=== PATIENT | female | born 1975 | race African-American/Black ===

== ENCOUNTER 2017-08-21 19:35 | Emergency (ER) | payer SELFPAY ==
[~2017-08-21] VITALS: Ht 162.6 cm; Wt 90.7 kg
--- NOTE | ~2017-08-21 | EKG ---
PATIENT: TOÑO APARICIO UNIT #: [id number] Ventricular Rate: 58 BPM Atrial Rate: 58 BPM P-R Interval: 154 ms QRS Duration: 84 ms Q-T Interval: 400 ms QTC Calculation(Bezet): 392 ms P [place]: 53 degrees Calculated R [place]: 17 degrees Calculated T [place]: 24 degrees Diagnosis Line: Sinus bradycardia Diagnosis Line: Nonspecific ST and T wave abnormality Diagnosis Line: Abnormal ECG Diagnosis Line: No previous ECGs available Diagnosis Line: Confirmed by JERRELL KLEIN MD ([id number]) on Diagnosis Line: 08/22/2017 9:46:00 AM INTERPRETING MD: LATOYA ZULETA
--- NOTE | ~2017-08-21 | CT71 ---
[facility] A Service [facility] RADIOLOGY TEXT RESULTS PATIENT: TOÑO APARICIO LOCATION: [facility] : 71 UNIT #: [id number] AGE: [address]: Drew Gallagher MD SEX: F ORDER DR: [id number] [facility]. [place], [place] [address] [id number] E MR#: [id number] Acc #: [id number] NAME: TOÑO APARICIO : 1975 SEX: F STUDY DATE/TIME: 08/21/2017 21:23 UNIT: [facility] ROOM: STUDY DESCRIPTION: CT Head Wo Contrast Attending Physician: Drew Gallagher M.D. Ordering Physician: Drew Gallagher M.D. Primary Care Phys[facility] IMAGING REPORT This report is preliminary unless electronic signature is present EXAM CT of head without contrast, 08/21/2017. COMPARISON None. HISTORY Near syncope at work today, dizziness and weakness. TECHNIQUE CT of the head was obtained without contrast in the axial plane as per the protocol. This CT exam was performed with one or more of the following radiation dose reduction techniques: automatic exposure control, adjustment of mA and/or kV according to patient size, and iterative reconstruction. FINDINGS Axial noncontrast images were obtained from the skull base to the vertex. Ventricular size and configuration are normal. There is no evidence of acute infarct or hemorrhage. There are no extra-axial fluid collections. No mass lesion or mass effect is seen. There are no skull fractures. Nasal septum is slightly deviated to the right. IMPRESSION Normal noncontrast head CT. Dictated by... Cuca Canales M.D. [facility] A Service [facility] RADIOLOGY TEXT RESULTS PATIENT: TOÑO APARICIO LOCATION: [facility] : 71 UNIT #: [id number] AGE: [address]: Drew Gallagher MD SEX: F ORDER DR: THIS IS AN ELECTRONICALLY VERIFIED REPORT Cuca Canales M.D. at 08/28/2017 6:59 AM CPR/maria ines TD: 08/21/2017 23:16 JOB #: [id number] MEDICAL IMAGING REPORT Page 1 of 1 COPY
[2017-08-21 21:19] LABS: BASOPHIL% 0.5 % (0-2.5); EOSINOPHIL# 0.4 X10e3 (0-0.7); EOSINOPHIL% 4.2 % (0.0-7.0); HEMATOCRIT 43.3 % (35.0-45.0); HEMOGLOBIN 14.6 gm/dL (12.0-16.0); LYMPHOCYTE# 1.7 X10e3 (1.0-3.5); LYMPHOCYTE% 20.3 % (17.0-45.0); MEAN CELL VOLUME 83.9 FL (83-96); MEAN CORPUSCULAR HEMOGLOBIN 28.4 PG (28-34); MEAN CORPUSCULAR HGB CONC 33.8 g/dL (30-36); MEAN PLATELET VOLUME 7.7 FL (6.5-11.5); MONOCYTE# 0.6 X10e3 (0-1.0); MONOCYTE% 6.9 % (3.0-12.0); NEUTROPHIL# 5.8 X10e3 (1.5-7.1); NEUTROPHIL% 68.1 % (40-75); PLATELET COUNT 288 X10e3 (140-420); RED BLOOD COUNT 5.16 X10e (3.90-5.30); RED CELL DISTRIBUTION WIDTH 15.3 % (11.0-15.5); WHITE BLOOD COUNT 8.5 X10e3 (4.0-10.5)
[2017-08-21 21:30] LABS: DIFF IND NO
[2017-08-21 21:41] LABS: POC - CKMB 1.4 ng/mL (0.0-7.9); POC - TROPONIN <0.05 ng/mL (<=0.05)
[2017-08-21 21:46] LABS: CALCIUM SERUM 9.1 mg/dL (8.4-10.2); CREATININE SERUM 0.8 mg/dL (0.6-1.4); GLOM FILT RATE Estimated 104.7 mL/min (>60); POTASSIUM 4.1 mmol/L (3.5-5.1)
== END 2017-08-21 22:56 | disposition home or self-care (01) ==
LOC: CED 19:35
PROVIDERS: Emergency Medicine
DX: R42 Dizziness and giddiness (principal); R51 Headache; M79.1 Myalgia; R53.83 Other fatigue
CPT/HCPCS: 36415; 70450; 80048; 82553; 84484; 84703; 85025; 93005; 99285